=== PATIENT | female | born 1975 | race Caucasian/White ===

== ENCOUNTER 2023-08-29 19:31 | Observation (INO) | payer OTHER ==
[~2023-08-29] VITALS: Ht 172.7 cm; Wt 106.8 kg
[2023-08-29 19:40] VITALS: TEMP 96.7
[2023-08-29] MEDS ORDERED: ISOVUE-370 76% 100ML VIAL As Ordered ONE (20:12)
[2023-08-29] MEDS ORDERED: NS 1,000 ML IV ONE (20:15)
[2023-08-29 21:00] LABS: BASO # 0.1 10^3/uL (0.0-0.2); BASO % 0.5 % (0.0-1.0); EOS # 0.1 10^3/uL (0.0-0.5); EOS % 0.8 % (0.0-3.0); HEMATOCRIT 32.6 % (36.0-47.0); HEMOGLOBIN 10.6 g/dl (12.0-15.5); MEAN CORPUSCULAR HEMOGLOBIN 26.3 pg (27.0-33.0); MEAN CORPUSCULAR HGB CONC 32.5 g/dl (32.0-36.5); MEAN CORPUSCULAR VOLUME 80.9 fl (80.0-96.0); MONO # 0.8 10^3/uL (0.0-0.8); MONO % 7.1 % (2.0-8.0); NEUTROPHILS # 8.1 10^3/uL (1.5-8.5); NEUTROPHILS % 73.1 % (36.0-66.0); PLATELET COUNT, AUTOMATED 234 10^3/uL (150-450); RED BLOOD COUNT 4.03 10^6/uL (4.00-5.40); WHITE BLOOD COUNT 11.1 10^3/uL (4.0-10.0)
[2023-08-29] MEDS ORDERED: MECLIZINE 25 MG TABLET PO ONE (21:05)
[2023-08-29 21:07] LABS: ERYTHROCYTE SEDIMENTATION RATE 10 mm/hr (0-20)
[2023-08-29] MEDS ORDERED: KETOROLAC 30 MG/ML 1ML VIAL IV ONE (21:15)
[2023-08-29] MEDS ORDERED: METOCLOPRAMIDE INJ 10MG/2ML VIAL IV ONE (21:15)
[2023-08-29] MEDS ORDERED: NORE5TAB PO (21:31)
[2023-08-29 21:53] LABS: ALBUMIN 3.2 G/DL (3.2-5.2); ALKALINE PHOSPHATASE 67 U/L (46-116); ALT/SGPT 17 U/L (7.0-40); AST/SGOT 13 U/L (<34); BILIRUBIN,TOTAL 0.2 MG/DL (0.3-1.2); BLOOD UREA NITROGEN 16 MG/DL (9-23); CALCIUM LEVEL 8.2 MG/DL (8.5-10.1); CARBON DIOXIDE LEVEL 22 MMOL/L (20-31); CHLORIDE LEVEL 108 MMOL/L (98-107); CREATININE FOR GFR 0.86 MG/DL (0.55-1.30); GLOMERULAR FILTRATION RATE > 60.0 (>58); GLUCOSE, FASTING 150 MG/DL (60-100); MAGNESIUM LEVEL 1.8 MG/DL (1.8-2.4); POTASSIUM SERUM 3.7 MMOL/L (3.5-5.1); SODIUM LEVEL 140 MMOL/L (136-145); TOTAL PROTEIN 6.3 G/DL (5.7-8.2)
[2023-08-30] MEDS ORDERED: MECL-209 PO (00:31)
[2023-08-30] MEDS ORDERED: NS 1,000 ML IV ONE (02:40)
[2023-08-30 02:59] LABS: RSV AMPLIFICATION NEGATIVE (NEGATIVE)
[2023-08-30] MEDS ORDERED: ACETAMINOPHEN *IV* 1,000 MG in IV 1 EA IV ONE (04:00)
[2023-08-30] MEDS ORDERED: KETOROLAC 30 MG/ML 1ML VIAL IV PRN (04:20)
[2023-08-30] MEDS ORDERED: LR 1,000 ML IV SCH (04:20)
[2023-08-30 04:45] VITALS: O2SAT 96
[2023-08-30] MEDS ORDERED: CETI-24 PO (04:58)
[2023-08-30] MEDS ORDERED: AZEL1SPR3 NARES (04:58)
[2023-08-30] MEDS ORDERED: NORE0.353 PO (04:58)
[2023-08-30 05:00] VITALS: BP 129/62
[2023-08-30] MEDS ORDERED: LORazepam 1 MG TAB PO ONE (05:00)
[2023-08-30] MEDS ORDERED: MECLIZINE 25 MG TABLET PO PRN (05:00)
[2023-08-30] MEDS ORDERED: HOME MED LIST COMPLETE! XX SCH (05:00)
[2023-08-30] MEDS ORDERED: HEPARIN SOD (PORCINE) 5000UNITS/ML 1ML VIAL/SYRINGE SC SCH (06:00)
[2023-08-30] MEDS ORDERED: ACETAMINOPHEN TAB 650MG DOSE (2X325MG) PO PRN (08:00)
[2023-08-30] MEDS ORDERED: PROHANCE 279.3MG/ML 15ML VIAL As Ordered ONE (08:16)
[2023-08-30] MEDS ORDERED: PROHANCE 279.3MG/ML 5ML VIAL As Ordered ONE (08:16)
[2023-08-30] MEDS ORDERED: TOPA1TAB PO (11:17)
[2023-08-30] MEDS ORDERED: MECL-86 PO (11:17)
[2023-08-30] MEDS ORDERED: PIRO10CA2 PO (11:17)
== END 2023-08-30 12:10 | disposition home or self-care (01) ==
LOC: EDBD 19:31 → M ED 19:31 → M ED INP 08-30 04:16
PROVIDERS: ADMIT Internal Medicine; ATTEND Internal Medicine
DX: G43.109 Migraine with aura, not intractable, without status migrainosus (principal); E66.9 Obesity, unspecified; R90.82 White matter disease, unspecified; Z86.73 Personal history of transient ischemic attack (TIA), and cerebral infarction without residual deficits; Z87.74 Personal history of (corrected) congenital malformations of heart and circulatory system; Z79.899 Other long term (current) drug therapy; Z88.0 Allergy status to penicillin; Z88.1 Allergy status to other antibiotic agents
CPT/HCPCS: 36415; 70450; 70496; 70498; 70546; 70551; 80053; 83735; 85025; 85652; 86140; 87631; 96374; 96375; 96376; 97161; 97530; 99285; A9576; J0131; J1885; J2765; Q9967